=== PATIENT | female | born 1980 | race Caucasian/White ===

== ENCOUNTER 2024-04-11 09:13 | Emergency (ER) | payer MEDICAID ==
[~2024-04-11] VITALS: Ht 160 cm; Wt 85.0 kg
[2024-04-11 09:21] VITALS: O2SAT 99
[2024-04-11 10:02] LABS: BASOPHILS % 0.7 % (0.0-2.0); EOSINOPHILS % 1.4 % (0.0-5.0); HEMATOCRIT. 36.7 % (36.0-48.0); HEMOGLOBIN. 12.5 g/dL (12.0-16.0); LYMPHOCYTES % 45.3 % (20.0-50.0); MEAN CORPUSCULAR HEMOGLOBIN 28.2 pg (28.0-32.0); MEAN PLATELET VOLUME 7.1 fl (7.4-10.4); MONOCYTES % 5.8 % (2.0-8.0); NEUTROPHILS % 46.8 % (40.0-76.0); PLATELET 381 x1000/uL (130-400); RED BLOOD CELL COUNT 4.42 mill/uL (4.2-5.4); RED CELL DISTRIBUTION WIDTH 15.7 % (11.6-14.6); WHITE BLOOD COUNT 8.4 x1000/uL (4.5-11.0)
[2024-04-11 10:17] LABS: CHLORIDE 104 mEq/L (98-107); POTASSIUM 3.9 mEq/L (3.5-5.1); SODIUM 136 mEq/L (136-145)
[2024-04-11 10:18] LABS: CARBON DIOXIDE 25 mEq/L (21-32)
[2024-04-11 10:19] LABS: CALCIUM 9.2 mg/dL (8.7-10.4)
[2024-04-11 10:23] LABS: CREATININE 0.9 mg/dL (0.6-1.0); GLUCOSE 108 mg/dL (70-105)
[2024-04-11 10:24] LABS: UREA NITROGEN BLOOD 10 mg/dL (9-23)
[2024-04-11 10:27] LABS: TROPONIN I HIGH SENSITIVITY < 4 ng/L (3.0-34)
[2024-04-11] MEDS: SODIUM CHLORIDE 0.9% 1,000 ML IV ONE (10:29)
[2024-04-11] MEDS: ONDANSETRON HCL 4MG/2ML INJ IV ONE (10:29)
[2024-04-11] MEDS: MORPHINE SULFATE 4 MG/ML INJ (FOR IV/IM USE) IV ONE (10:29)
[2024-04-11] MEDS ORDERED: TOPUD MT (15:46)
[2024-04-11] MEDS ORDERED: PANT40SU MT (15:46)
[2024-04-11] MEDS ORDERED: ONDA4TAB50 MT (15:46)
[2024-04-11 16:21] VITALS: BP 130/67; PULSE 97; RESP 18; TEMP 98.5
== END 2024-04-11 16:26 | disposition home or self-care (01) ==
LOC: ER 09:13
DX: R07.89 Other chest pain (principal); K29.70 Gastritis, unspecified, without bleeding; I10 Essential (primary) hypertension
CPT/HCPCS: 80048; 85025; 84484; 36415; 71045; 76705; 93005; 96374; 96375; 99285; J2405; J2270; J7030; Z7610